=== PATIENT | female | born 1960 | race Caucasian/White ===

== ENCOUNTER → 2017-04-29 | Outpatient (REF) ==
[2016-06-17 17:00] VITALS: BMI 27.6
[~2017-04-29] MED LIST: AMOX-559 PO; AZIT-1 PO; DIVA500T98 PO; ESTR-26 PO; FLUT16SP19; LAC200PT PO; LEVE100047 PO; LORA-636 PO; OMEG-96 PO; ONDA-2 PO; OXCA300T44 PO; OXYC5CAP21 PO; VALA100062 PO; [UNRECOGNIZED DRUG - CODE] PO
[2017-04-29 09:40] LABS: LDL CHOLESTEROL 120 mg/dl
== END ==
DX: Z02.9 Encounter for administrative examinations, unspecified (principal)